=== PATIENT | female | born 2000 | race Caucasian/White ===

== ENCOUNTER 2020-09-30 18:38 | Emergency (ER) | payer OTHER, BC ==
[2020-09-30] MEDS ORDERED: LOPRESSOR 225 MG/TAB (19:00)
[2020-09-30] MEDS ORDERED: WELLBUTRIN SR150 M3 PO (19:01)
[2020-09-30 19:26] LABS: EOS # 0.1 (0.04-0.40); EOS % 1.2 % (1.0-5.0); HEMATOCRIT 43.7 % (37.0-47.0); HEMOGLOBIN 14.7 g/dL (12.5-16.0); LYMPH# 2.7 (1.50-4.00); MEAN CELL VOLUME 87 fl (78-100); MEAN CORPUSCULAR HEMOGLOBIN 29 pg (27-31); MEAN CORPUSCULAR HGB CONC 34 g/dL (33-37); NEU # 7.5 (1.40-6.50); PLATELET COUNT 301 K/mm3 (130-400); RED BLOOD COUNT 5.03 M/mm3 (4.10-5.30); RED CELL DISTRIBUTION WIDTH 13.4 % (11.5-14.5); WHITE BLOOD COUNT 11.4 K/mm3 (4.8-10.8)
[2020-09-30 19:35] LABS: ALBUMIN 4.5 g/dL (3.5-5.0); POTASSIUM 3.8 mmol/L (3.5-5.1)
[2020-09-30 19:37] LABS: CALCIUM 9.9 mg/dL (8.3-10.5)
[2020-09-30 19:38] LABS: TOTAL PROTEIN 7.9 g/dL (6.4-8.3)
[2020-09-30 19:38] LABS: URINE APPEARANCE HAZY; URINE BILIRUBIN NEGATIVE (NEGATIVE); URINE BLOOD NEGATIVE (NEGATIVE); URINE COLOR YELLOW; URINE GLUCOSE NEGATIVE (NEGATIVE); URINE KETONE NEGATIVE (NEGATIVE); URINE LEUKOCYTE ESTERASE NEGATIVE (NEGATIVE); URINE MUCUS PRESENT (NOT PRESENT); URINE NITRATE NEGATIVE (NEGATIVE); URINE PROTEIN(semi-quant) NEGATIVE (NEGATIVE); URINE UROBILINOGEN NORMAL (NORMAL); URINE WBC 0-1 /hpf (0-3)
[2020-09-30 19:40] LABS: TOTAL BILIRUBIN 0.5 mg/dL (0.2-1.2)
[2020-09-30 21:34] VITALS: BP 138/88
[2020-09-30] MEDS ORDERED: METOPROLOL SUCC25 M1 PO (21:43)
[2020-09-30] MEDS ORDERED: EFFEXOR XR75 M2 PO (21:44)
== END 2020-09-30 21:34 | disposition home or self-care (01) ==
LOC: ED 18:38
PROVIDERS: Family Medicine
DX: R10.31 Right lower quadrant pain (principal)
CPT/HCPCS: J1885; J3010; J7030; Q9967